=== PATIENT | male | born 1975 | race Caucasian/White ===

== ENCOUNTER 2017-09-07 20:18 | Emergency (ER) | payer OTHER ==
[~2017-09-07] VITALS: Ht 170.2 cm; Wt 65.9 kg
[2017-09-07 20:21] VITALS: BP 150/98
[2017-09-07] MEDS ORDERED: LIDOcaine 1% 30ml preserv. free vial IJ ONE (21:55)
[2017-09-07] MEDS ORDERED: HYDROcodone/acetaminophen 10/325mg tab PO ONE (21:55)
[2017-09-07] MEDS ORDERED: SULF1TAB49 PO (21:56)
[2017-09-07] MEDS ORDERED: CEPH-572 PO (21:56)
== END 2017-09-07 22:41 | disposition home or self-care (01) ==
LOC: ER 20:19
DX: L02.415 Cutaneous abscess of right lower limb (principal)
CPT/HCPCS: 10060; 99283; J3490

== ENCOUNTER 2021-09-03 09:04 | Emergency (ER) | payer BC, OTHER ==
[~2021-09-03] VITALS: Ht 170.2 cm; Wt 63.6 kg
[2021-09-03 09:05] VITALS: BP 145/108
[2021-09-03] MEDS ORDERED: LIDOcaine 1% W/epiNEPHrine 1:200,000 10ml vial IJ ONE (09:10)
[2021-09-03] MEDS ORDERED: TETanus/Pertussis (Acell)/Diphther VAC/PF (Tdap-Adult) 0.5ml syringe IMVAC ONE (09:10)
[2021-09-03] MEDS ORDERED: HYDROcodone/acetaminophen 5mg/325mg tablet PO ONE (09:10)
[2021-09-03] MEDS ORDERED: HYDR-3972 PO (09:15)
[2021-09-03] MEDS ORDERED: LIDOcaine 1% w/epiNEPHrine 1:200,000 30ml vial IJ ONE (09:25)
[2021-09-03] MEDS ORDERED: LIDOcaine 1% W/epiNEPHrine 1:100,000 20ml vial IJ ONE (09:45)
[2021-09-03] MEDS ORDERED: ceFAZolin/D5W- 1GM premix 50 ML IV ONE (10:00)
[2021-09-03] MEDS ORDERED: CEPH-585 PO (10:04)
== END 2021-09-03 11:45 | disposition home or self-care (01) ==
LOC: ER 09:04
DX: S62.609B Fracture of unspecified phalanx of unspecified finger, initial encounter for open fracture (principal); W19.XXXA Unspecified fall, initial encounter; Y93.89 Activity, other specified; Y92.89 Other specified places as the place of occurrence of the external cause; Y99.8 Other external cause status
CPT/HCPCS: 12001; 73140; 90471; 90715; 96365; 99285; J0690; 99284

== ENCOUNTER 2021-09-17 10:52 | Outpatient (CLI) | payer BC ==
[~2021-09-17 10:52] MED LIST: CEPH-585 PO
== END 2021-09-17 23:59 | disposition home or self-care (01) ==
LOC: RAD 10:52
PROVIDERS: ATTEND Physician Assistant
DX: S62.632A Displaced fracture of distal phalanx of right middle finger, initial encounter for closed fracture (principal); X58.XXXA Exposure to other specified factors, initial encounter; Y93.89 Activity, other specified; Y92.89 Other specified places as the place of occurrence of the external cause; Y99.8 Other external cause status
CPT/HCPCS: 73140

== ENCOUNTER 2022-01-22 11:02 | Outpatient (CLI) | payer BC ==
[2022-01-22 11:36] LABS: ALANINE AMINOTRANSFERASE 41 U/L (12-78); ALBUMIN 4.2 G/DL (3.4-5.0); ALBUMIN/GLOBULIN RATIO 1.2 (1.1-1.5); ALKALINE PHOSPHATASE 53 IU/L (46-116); ANION GAP 7 (8-16); ASPARTATE AMINO TRANSFERASE 25 U/L (10-37); BILIRUBIN,TOTAL 0.7 MG/DL (0.1-1.0); BLOOD UREA NITROGEN 19 MG/DL (7-18); CALCIUM 8.7 MG/DL (8.5-10.1); CHLORIDE 102 MMOL/L (99-107); CHOL/HDL RATIO 4.3 (0.00-4.99); CHOLESTEROL 255 MG/DL (0-200); CREATININE 1.19 MG/DL (0.60-1.10); GLUCOSE 89 MG/DL (70-104); HDL CHOLESTEROL 59 MG/DL (35-60); LDL CHOLESTEROL 168 MG/DL (50-100); POTASSIUM 4.1 MMOL/L (3.5-5.1); SODIUM 136 MMOL/L (135-145); TOTAL CARBON DIOXIDE 26.6 MMOL/L (24-32); TOTAL PROTEIN 7.7 G/DL (6.4-8.2); TRIGLYCERIDES 82 MG/DL (20-135); eGFR 65 ML/MIN
== END 2022-01-22 23:59 | disposition home or self-care (01) ==
LOC: LAB 11:02
PROVIDERS: ATTEND General Practice
DX: E78.5 Hyperlipidemia, unspecified (principal)
CPT/HCPCS: 36415; 80053; 80061

== ENCOUNTER 2024-07-05 09:20 | Outpatient (CLI) | payer BC ==
[2024-07-05 10:07] LABS: BASOPHILS # (AUTO) 0.1 X10'3 (0-0.2); EOSINOPHILS # (AUTO) 0.4 X10'3 (0-0.9); EOSINOPHILS % (AUTO) 6.1 % (0-6); HEMATOCRIT 45.5 % (42.0-52.0); HEMOGLOBIN 15.4 g/dl (14.0-17.9); LYMPHOCYTES # (AUTO) 2.3 X10'3 (1.1-4.8); LYMPHOCYTES % (AUTO) 40.1 % (21-51); MEAN CORPUSCULAR VOLUME 88.3 FL (78-98); MEAN PLATELET VOLUME 7.7 FL (7.4-10.4); MONOCYTES # (AUTO) 0.5 X10'3 (0-0.9); MONOCYTES % (AUTO) 8.2 % (2-12); NEUTROPHILS # (AUTO) 2.6 X10'3 (1.8-7.7); NEUTROPHILS % (AUTO) 44.6 % (42-75); PLATELET COUNT 280 X10'3 (140-440); RED BLOOD COUNT 5.15 X10'6 (4.70-6.10); RED CELL DISTRIBUTION WIDTH 13.7 % (11.5-14.5); WHITE BLOOD COUNT 5.7 X10'3 (4.5-11.0)
[2024-07-05 10:28] LABS: ALANINE AMINOTRANSFERASE 36 U/L (12-78); ALBUMIN 4.2 G/DL (3.4-5.0); ALBUMIN/GLOBULIN RATIO 1.2 (1.1-1.5); ALKALINE PHOSPHATASE 43 IU/L (46-116); ANION GAP 5 (8-16); ASPARTATE AMINO TRANSFERASE 16 U/L (10-37); BILIRUBIN,TOTAL 0.8 MG/DL (0.1-1.0); BLOOD UREA NITROGEN 19 MG/DL (7-18); BUN/CREATININE RATIO 16.2 (10.0-20.0); CALCIUM 8.9 MG/DL (8.5-10.1); CHLORIDE 102 MMOL/L (99-107); CHOL/HDL RATIO 4.2 (0.00-4.99); CHOLESTEROL 261 MG/DL (0-200); CREATININE 1.17 MG/DL (0.60-1.10); HDL CHOLESTEROL 62 MG/DL (35-60); LDL CHOLESTEROL 174 MG/DL (50-100); SODIUM 136 MMOL/L (135-145); TOTAL CARBON DIOXIDE 28.9 MMOL/L (24-32); TOTAL PROTEIN 7.8 G/DL (6.4-8.2); TRIGLYCERIDES 80 MG/DL (20-135); eGFR 66 ML/MIN
[2024-07-05 10:34] LABS: GLUCOSE 91 MG/DL (70-104)
[2024-07-06 11:59] LABS: PROSTATE SPECIFIC AG, SERUM 0.5 ng/mL (0.0-4.0); PSA, FREE 0.32 ng/mL
== END 2024-07-05 23:59 | disposition home or self-care (01) ==
LOC: LAB 09:20
PROVIDERS: ATTEND General Practice
DX: Z12.5 Encounter for screening for malignant neoplasm of prostate (principal); E78.5 Hyperlipidemia, unspecified
CPT/HCPCS: 36415; 80053; 80061; 84153; 84154; 85025